=== PATIENT | male | born 1995 | race Caucasian/White ===

== ENCOUNTER 2016-11-02 00:24 | Emergency (ER) | payer SELFPAY ==
[2016-11-02 00:38] VITALS: BP 122/77; PULSE 76; TEMP 97.5; BMI 25.8
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
== END 2016-11-02 01:55 | disposition home or self-care (01) ==
LOC: JER 00:24
DX: Z04.1 Encounter for examination and observation following transport accident (principal); V86.01XA Driver of ambulance or fire engine injured in traffic accident, initial encounter; Y92.488 Other paved roadways as the place of occurrence of the external cause; Y93.89 Activity, other specified; Y99.0 Civilian activity done for income or pay
CPT/HCPCS: 99282-25